=== PATIENT | male | born 1980 | race Two or more races ===

== ENCOUNTER 2024-08-11 17:13 | Emergency (ER) | payer MEDICAID, SELFPAY ==
[2024-08-11 17:15] VITALS: BMI 31.0
[2024-08-11 17:22] VITALS: BP 136/86; PULSE 60; RESP 18; TEMP 36.5; O2SAT 98
--- NOTE | 2024-08-11 17:26 | XR_ITS ---
Examination: Duplex scan of the lower extremity, unilateral left complete Date and time of exam: August 11 2024 at 1741 hrs. Indications: Onset left leg swelling and pain beginning today Technique: Duplex scan of the extremity veins using B-mode/grayscale imaging and Doppler spectral analysis and color flow Attention is directed to internal echogenicity, compression and augmentation involving these veins, color flow assessment, spectral analysis Findings: Major deep venous structures in the extremity demonstrate normal course and caliber. There is no evidence of deep vein thrombosis. Normal color flow and spectral analysis Impression: Negative for DVT..
--- NOTE | 2024-08-11 17:26 | PD.EDRME ---
Rapid Medical Screening Exam RME Arrival date/time: 08/11/24 17:13 44-year-old male presents to the emergency department complaints of left lower extremity swelling Chief Complaint: Extremity Injury, Lower Time Seen by Provider: 08/11/24 17:24 Vital signs: Vital Signs Temperature 97.7 F 08/11/24 17:22 Pulse Rate 60 08/11/24 17:22 Respiratory Rate 18 08/11/24 17:22 Blood Pressure 136/86 H 08/11/24 17:22 Pulse Oximetry (%) 98 08/11/24 17:22 Oxygen Delivery Method Room Air 08/11/24 17:22
[2024-08-11 18:21] LABS: Basophils % (Auto) 1 % (0-2.5); Eosinophils # (Auto) 0.3 Thou/mm3 (0.0-0.5); Eosinophils % (Auto) 3 % (0-10); Hematocrit 42.8 % (41.0-53.0); Hemoglobin 14.8 g/dL (13.5-16.0); Immature Granulocytes % (Auto) 0 % (0-0); Immature Granulocytes Auto 0.01 Thou/mm3 (0.00-0.00); Lymphocytes # (Auto) 3.1 Thou/mm3 (1.0-4.8); Lymphocytes % (Auto) 40 % (10-50); Mean Corpuscular HGB Conc 34.6 g/dl (31.0-37.0); Mean Corpuscular Hemoglobin 31.1 pg (25.0-35.0); Mean Corpuscular Volume 90 fL (80-100); Monocytes # (Auto) 1.1 Thou/mm3 (0.0-0.8); Monocytes % (Auto) 14 % (0-12); Neutrophils # (Auto) 3.3 Thou/mm3 (1.8-7.7); Neutrophils % (Auto) 42 % (37-80); Nucleated Red Blood Cell % 0 /100 WBC (0); Platelet Count 207 Thou/mm3 (140-440); RDW Standard Deviation 44.4 fL (35.1-43.9); Red Blood Count 4.76 Miln/mm3 (4.50-5.90); White Blood Count 7.8 Thou/mm3 (3.8-10.6)
[2024-08-11 18:38] LABS: Partial Thromboplastin Time 24.1 Seconds (22.0-36.0); Prothrombin Time 11.4 Seconds (9.0-12.2)
[2024-08-11 18:41] LABS: Alanine Aminotransferase 38 U/L (10-49); Albumin, Serum 4.8 gm/dL (3.5-5.0); Albumin/Globulin Ratio 1.7 (1.2-2.2); Alkaline Phosphatase 55 U/L (46-116); Anion Gap 6 (7-16); Aspartate Amino Transferase 32 U/L (0-34); BUN/Creatinine Ratio 11 Ratio (12-20); Bilirubin,Total 0.5 mg/dL (0.3-1.2); Blood Urea Nitrogen 11 mg/dL (9-23); Calcium 9.9 mg/dL (8.3-10.6); Calcium (Corrected) 9.9 mg/dL (8.5-10.1); Carbon Dioxide 26.9 mMol/L (20.0-31.0); Chloride 106 mMol/L (98-107); Estimated Creatinine Clearance 129.6 mL/min (>60); Globulin 2.8 gm/dL (2.3-3.5); Glucose 139 mg/dL (74-106); Osmolality,Calculated 278 (275-295); Potassium 4.4 mMol/L (3.4-5.1); Sodium 139 mMol/L (136-145); Total Protein 7.6 gm/dL (5.7-8.2); eGFR > 60 See Note
--- NOTE | 2024-08-11 19:59 | EDNOTE_ITS ---
ED General RME/HPI General Chief complaint: Extremity Injury, Lower Stated complaint: LEFT FOOT SWELLING AND PAIN SENT BY [facility] Time Seen by Provider: 08/11/24 17:24 Arrival date/time: 08/11/24 17:13 CC: Right calf pain HPI onset yesterday, denies any trauma falls repetitive motion no prior history of similar events states it is tender to touch to the medial aspect of the calf and along the corona bone . Patient denies fever chills shortness of breath just came from [facility] who prescribed antibiotics for the leg patient denies fever or any other symptoms. Localized pain is 1-2 out of 10 scale. RME / HPI RME / HPI narrative: 08/11/24 17:13 44-year-old male presents to the emergency department complaints of left lower extremity swelling Related Data Previous Rx's ?Medication ?Instructions ?Recorded prednisone 20 mg tablet See Taper PO BID 3 days #6 tabs 08/11/24 Allergies Allergy/AdvReac Type Severity Reaction Status Date / Time No Known Allergies Allergy Verified 08/11/24 17:18 Review of Systems Review of Systems Narrative Review of Systems: GEN: No fever, no chills, no weight loss EYES: No discharge, no visual changes, no pain HEENT: No ear pain, no congestion, no sore throat PULM: No shortness of breath, no cough, no congestion CV: No chest pain, no dyspnea on exertion, no palpitations GI: No nausea, no vomiting, no diarrhea, no pain, no constipation : No frequency, no urgency, no dysuria MUSC/SKEL: + Leg pain, no joint pain, no back pain SKIN: No rash PSYCH: No hallucinations, no depression HEME/LYMPH: No easy bleeding or bruising tendencies NEURO: No weakness, no headache Past Medical History Social History SMOKING STATUS: Never smoker ED Exam Narrative Physical exam: [General: Not in any acute distress Head normocephalic HEENT: Within acceptable limits Neck is supple nontender Chest equal chest rise nontender to palpation Respiratory: Clear to auscultation no wheezes crackles or rubs CV: Rate rhythm is regular no murmurs rubs or clicks Abdomen is distended secondary to body habitus soft nontender no masses positive bowel sounds all 4 quadrants Back: No CVA tenderness no spinous process tenderness from cervical spine thoracic and lumbar spine Skin: Intact no petechiae rash induration ulceration or crepitus Extremities: Left lower extremity: Patient has some mild edema to the gastrocnemius and soleus medial aspect, is tender to palpation there is no surrounding erythema edema irregular in shape no ecchymosis to the skin. Moving all other extremities against resistance cap refill less than 2 seconds neurosensory intact Neuro: Awake alert oriented x3 Glascow coma 15 no focal deficits] Course Quality Measures none Orders Category Date Time Status US venous doppler LE LT Stat Exams 08/11/24 17:26 Completed CBC Stat Lab 08/11/24 18:10 Completed Comprehensive Metabolic Panel Stat Lab 08/11/24 18:10 Completed Partial Thromboplastin Time Stat Lab 08/11/24 18:10 Completed Prothrombin Time with INR Stat Lab 08/11/24 18:10 Completed Vital Signs Vital signs: Vital Signs Temperature 97.7 F 08/11/24 17:22 Pulse Rate 60 08/11/24 17:22 Respiratory Rate 18 08/11/24 17:22 Blood Pressure 136/86 H 08/11/24 17:22 Pulse Oximetry (%) 98 08/11/24 17:22 Oxygen Delivery Method Room Air 08/11/24 17:22 [facility] Patient data External records reviewed:: [facility] previous records Clinical information provided by:: patient Social determinants that could affect healthcare access:: none Patient has the following chronic illnesses:: None How is presenting disease/condition affected by chronic disease/condition?: u neffected by Evaluation data The following diagnostics were reviewed and interpreted by me:: lab results and radiology exam(s) Lab and/or radiology exams considered but not ordered:: Ultrasound of the left lower extremity is negative for any acute finding including DVT CBC shows no acute leukocytosis anemia thrombocytopenia CMP shows no acute electrolyte imbalance renal impairment transaminitis or T. bili elevation of Interpretation Summary: Right lower leg pain Medications Medications considered but not ordered:: None Medication administrations:: None Consultations Consultation(s) initiated? (list below): No Diagnosis Differential Diagnosis ED Complaint MDM: DVT leg cellulitis leg pain Most likely diagnosis given after review of the tests above:: Malignant pain Admission Indicated Admission indicated?: not indicated Explain why admission is indicated or not indicated:: Stable for outpatient follow-up Admission Request Was there a request for admission?: No Disposition Plan Disposition Plan: Discharge Discharge Attestation Discharge Attestation: The patient and all family members were given an opportunity to ask questions and understood the discharge instructions. Discharge instructions specifically effects, indications for sooner follow up or return to the emergency department, and the expected course of current diagnosis. Patient condition: Stable Medical Decision Making Differential Diagnosis Differential Diagnosis: DVT leg cellulitis leg pain Lab Data 08/11/24 18:10 08/11/24 18:10 Labs: Lab Results 08/11/24 Range/Units 18:10 WBC 7.8 (3.8-10.6) Thou/mm3 RBC 4.76 (4.50-5.90) Miln/mm3 Hgb 14.8 (13.5-16.0) g/dL Hct 42.8 (41.0-53.0) % MCV 90 (80-100) fL MCH 31.1 (25.0-35.0) pg MCHC 34.6 (31.0-37.0) g/dl RDW Std Deviation 44.4 H (35.1-43.9) fL Plt Count 207 (140-440) Thou/mm3 Neut % (Auto) 42 (37-80) % Lymph % (Auto) 40 (10-50) % [place] % (Auto) 14 H (0-12) % Eos % (Auto) 3 (0-10) % Baso % (Auto) 1 (0-2.5) % Neut # (Auto) 3.3 (1.8-7.7) Thou/mm3 Lymph # (Auto) 3.1 (1.0-4.8) Thou/mm3 [place] # (Auto) 1.1 H (0.0-0.8) Thou/mm3 Eos # (Auto) 0.3 (0.0-0.5) Thou/mm3 Baso # (Auto) 0.0 (0.0-0.2) Thou/mm3 Immature Gran # (Auto) 0.01 H (0.00-0.00) Thou/mm3 Absolute Nucleated RBC 0.00 (0.00-0.00) Thou/mm3 Immature Gran % 0 (0-0) % Nucleated RBC % 0 (0) /100 WBC PT 11.4 (9.0-12.2) Seconds INR 1.0 (0.9-1.3) APTT 24.1 (22.0-36.0) Seconds Sodium 139 (136-145) mMol/L Potassium 4.4 (3.4-5.1) mMol/L Chloride 106 (98-107) mMol/L Carbon Dioxide 26.9 (20.0-31.0) mMol/L Anion Gap 6 L (7-16) BUN 11 (9-23) mg/dL Creatinine 1.0 (0.6-1.3) mg/dL Estim Creat Clear Calc 129.6 (>60) mL/min eGFR > 60 (60 - ) See Note BUN/Creatinine Ratio 11 L (12-20) Ratio Glucose 139 H (74-106) mg/dL Calculated Osmolality 278 (275-295) Calcium 9.9 (8.3-10.6) mg/dL Corrected Calcium 9.9 (8.5-10.1) mg/dL Total Bilirubin 0.5 (0.3-1.2) mg/dL AST 32 (0-34) U/L ALT 38 (10-49) U/L Alkaline Phosphatase 55 (46-116) U/L Total Protein 7.6 (5.7-8.2) gm/dL Albumin 4.8 (3.5-5.0) gm/dL Globulin 2.8 (2.3-3.5) gm/dL Albumin/Globulin Ratio 1.7 (1.2-2.2) Discharge Plan Plan Patient Disposition: HOME (Self Care) Patient condition on transfer: Stable Prescriptions/Referrals Prescriptions/Med Rec: New prednisone 20 mg tablet See Taper PO BID 3 Days Qty: 6 0RF Taper: Prednisone Taper 20 mg DAILY for 2 Days and 0 Hour 10 mg DAILY for 2 Days and 0 Hour 5 mg DAILY for 7 Days and 0 Hour Referrals: Julien Zelaya MD [Primary Care Provider] - In 1 week Problem List Clinical Impression: Leg pain Patient/Caregiver Discharge Instructions Education Materials: ED Leg Spasm Print Language: Japanese Stand Alone Forms: Camryn Award Info., Patient Portal Info Letter, Work/School Release PA/RISA Supervising Physician DAWIT/RISA Supervising Physician: Cheng uBtt ENP
[2024-08-11 20:12] VITALS: RESP 18
== END 2024-08-11 20:14 | disposition home or self-care (01) ==
PROVIDERS: Nurse Practitioner Primary Care; Emergency Provider Emergency Medicine; PCP Family Medicine
DX: M79.661 Pain in right lower leg (principal)
CPT/HCPCS: 36415; 80053; 85025; 85610; 85730; 93971; 99284